=== PATIENT | male | born 1990 | race Caucasian/White ===

== ENCOUNTER 2017-04-12 13:05 | Emergency (ER) | payer MEDICAID ==
[2017-04-12 13:21] VITALS: BP 122/70
== END 2017-04-12 15:01 | disposition left against medical advice (07) ==
LOC: ED 13:05
DX: Z53.21 Procedure and treatment not carried out due to patient leaving prior to being seen by health care provider (principal); M79.89 Other specified soft tissue disorders

== ENCOUNTER 2018-04-25 19:54 | Emergency (ER) | payer MEDICAID ==
[2018-04-25 19:59] VITALS: BP 132/95
[2018-04-25] MEDS ORDERED: HYDROcod/ACETAM 5/325 MG TABLET PO STA (20:13)
--- NOTE | 2018-04-25 20:14 | ED Physician Documentation ---
PD HPI LOWER EXT INJURY - Stated complaint Stated Complaint: FOOT/ANKLE INJURY - Chief complaint Chief Complaint: Ext Problem - History obtained from History obtained from: Patient - History of Present Illness PD HPI LOW EXT INJURY LOCATION: Right, Foot (Skateboarding today and fell trying to do a track and injured the medial side of his right foot with pain radiating upward when he tries to walk. He is unable to walk or bear weight. No other injuries.) Review of Systems Constitutional: reports: Reviewed and negative Throat: reports: Reviewed and negative Cardiac: reports: Reviewed and negative PD PAST MEDICAL HISTORY - Past Medical History Past Medical History: No Cardiovascular: None Respiratory: None Endocrine/Autoimmune: None Psych: Other - Past Surgical History Past Surgical History: Yes - Present Medications Home Medications: Ambulatory Orders Medication Instructions Recorded Confirmed No Known Home Medications [No 04/25/18 04/25/18 Known Home Medications] - Allergies Allergies/Adverse Reactions: Allergies Allergy/AdvReac Type Severity Reaction Status Date / Time bupropion HCl * Allergy Hives Verified 04/12/17 13:21 [From Wellbutrin] coconut Allergy Anaphylaxis Verified 04/25/18 19:59 pineapple Allergy Anaphylaxis Verified 04/25/18 19:59 - Social History Does the pt smoke?: Yes Smoking Status: Current every day smoker Does the pt drink ETOH?: Yes ETOH Use: Beer Does the pt have substance abuse?: Yes Substance Use and Type: Marijuana - Immunizations Immunizations are current?: Yes - POLST Patient has POLST: No PD ED PE NORMAL - Vitals Vital signs reviewed: Yes - General General: Alert and oriented X 3, No acute distress - Extremities Extremities: Other (Mild tenderness of the medial part of the mid right foot without ankle or proximal fibular tenderness.) - Neuro Neuro: Alert and oriented X 3, Normal speech - Psych Psych: Normal mood, Normal affect Results - Vitals Vitals: Vital Signs - 24 hr 04/25/18 19:57 Temperature 36.3 C L Heart Rate 94 Respiratory 16 Rate Blood Pressure 132/95 H O2 Saturation 100 Oxygen O2 Source Room air - Rads (name of study) R foot 3v Radiology: EMP read contemporaneously (NAD) Departure - Departure Disposition: 01 Home, Self Care Clinical Impression: Right foot sprain Qualifiers: Encounter type: initial encounter Qualified Code(s): S93.601A - Unspecified sprain of right foot, initial encounter Condition: Good Record reviewed to determine appropriate education?: Yes Instructions: ED Sprain Foot Comments: Recheck with your doctor in 1 week if not better. Return if worse. Your blood pressure was elevated today on check into the emergency department. This does not mean that you have hypertension, it is a common phenomenon to come to the emergency department and have elevated blood pressure. I recommend that you see your primary care physician within the week to have it rechecked when you are feeling better. Discharge Date/Time: 04/25/18 21:12
--- NOTE | 2018-04-25 20:48 | XRAY Preliminary Report ---
Exam: XR FOOT 3 VIEW RT IMPRESSION: Normal foot radiography. [facility] SITE ID: [id number]
[2018-04-25] MEDS ORDERED: HYDROcod/ACET 5/325 Prepack 4 PO STA (20:56)
--- NOTE | 2018-04-25 21:05 | XRAY Report ---
EXAM: RIGHT FOOT RADIOGRAPHY EXAM DATE: 04/25/2018 08:29 PM. CLINICAL HISTORY: Medial foot pain in the area of the metatarsals after a skateboarding injury. COMPARISON: None. TECHNIQUE: 3 views. FINDINGS: Bones: Normal. No fractures or bone lesions. Joints: Normal. No subluxations. Soft Tissues: Normal. No soft tissue swelling. IMPRESSION: Normal foot radiography. [facility] Referring Provider Line: [phone] SITE ID: [id number]
== END 2018-04-25 21:12 | disposition home or self-care (01) ==
LOC: ED 19:54
DX: S93.601A Unspecified sprain of right foot, initial encounter (principal); V00.131A Fall from skateboard, initial encounter; Y93.51 Activity, roller skating (inline) and skateboarding; R03.0 Elevated blood-pressure reading, without diagnosis of hypertension; F17.200 Nicotine dependence, unspecified, uncomplicated
CPT/HCPCS: 73630; 99282; 99283; A9270

== ENCOUNTER 2018-10-06 14:13 | Emergency (ER) | payer MEDICAID ==
[2018-10-06] MEDS ORDERED: AMOX/CLAV 875 MG/125 MG TABLET PO STA (15:32)
[2018-10-06] MEDS ORDERED: ONDANSETRON ODT 4 MG TABLET TL STA (15:32)
--- NOTE | 2018-10-06 15:42 | ED Physician Documentation ---
History of Present Illness - Stated complaint Stated Complaint: RT TOP TOOTH PX - Chief complaint Chief Complaint: Abd Pain - Additonal information Additional information: hx from pt 27 male right upper dental decay - tooth been crumbling to a stub over a month then abscessed drained spont which made him nauseated Review of Systems Constitutional: denies: Fever Throat: reports: Dental pain / toothache GI: reports: Nausea, Other (painful BM no blood or diarrhea) PD PAST MEDICAL HISTORY - Past Medical History Past Medical History: No Cardiovascular: None Respiratory: None Endocrine/Autoimmune: None Psych: Other - Past Surgical History Past Surgical History: Yes - Present Medications Home Medications: Ambulatory Orders Medication Instructions Recorded Confirmed Amoxicillin 500 mg PO Q8HR #30 capsule 10/06/18 Ondansetron Odt [Zofran] 4 mg TL Q6H PRN #10 tablet 10/06/18 - Allergies Allergies/Adverse Reactions: Allergies Allergy/AdvReac Type Severity Reaction Status Date / Time bupropion HCl * Allergy Hives Verified 04/12/17 13:21 [From Wellbutrin] coconut Allergy Anaphylaxis Verified 04/25/18 19:59 pineapple Allergy Anaphylaxis Verified 10/06/18 14:23 - Social History Does the pt smoke?: Yes Smoking Status: Current every day smoker Does the pt drink ETOH?: Yes Does the pt have substance abuse?: Yes - Immunizations Immunizations are current?: Yes - POLST Patient has POLST: No PD ED PE NORMAL - Vitals Vital signs reviewed: Yes - HEENT HEENT: Other (upper right posterior molar decayed with surrounding inflammation no trismus) - Cardiac Cardiac: RRR - Respiratory Respiratory: No respiratory distress - Abdomen Abdomen: Soft, Non tender Results - Vitals Vitals: Vital Signs - 24 hr 10/06/18 14:19 Temperature 36.8 C Heart Rate 62 Respiratory 20 Rate Blood Pressure 124/82 H O2 Saturation 100 Oxygen O2 Source Room air Departure - Departure Disposition: 01 Home, Self Care Clinical Impression: Dental abscess Instructions: ED Abscess Dental Prescriptions: Amoxicillin 500 mg PO Q8HR #30 capsule Ondansetron Odt [Zofran] 4 mg TL Q6H PRN #10 tablet PRN Reason: Nausea / Vomiting Comments: Please call [facility] to schedule follow up Forms: Activity restrictions
[2018-10-06 15:52] VITALS: BP 122/82
== END 2018-10-06 15:51 | disposition home or self-care (01) ==
LOC: ED 14:13
DX: K04.7 Periapical abscess without sinus (principal); F17.200 Nicotine dependence, unspecified, uncomplicated
CPT/HCPCS: 99283; A9270; Q0162

== ENCOUNTER 2018-10-25 11:17 | Emergency (ER) | payer MEDICAID ==
[2018-10-25 11:33] VITALS: BP 112/68
--- NOTE | 2018-10-25 13:17 | XRAY Report ---
Reason: right third digit injury Procedure Date: 10/25/2018 Accession Number: [id number] / [id number] Procedure: XR - Finger(s) RT CPT Code: FULL RESULT: EXAM: RIGHT THIRD DIGIT RADIOGRAPHY EXAM DATE: 10/25/2018 11:48 AM. CLINICAL HISTORY: Right third digit injury. COMPARISON: None. TECHNIQUE: 3 views. FINDINGS: Bones: No fractures or bone lesions. Joints: Unremarkable. Soft Tissues: Unremarkable. IMPRESSION: 1. No acute osseous abnormality. [facility]
--- NOTE | 2018-10-25 13:21 | ED Physician Documentation ---
PD HPI UPPER EXT INJURY - Stated complaint Stated Complaint: R MIDDLE FINGER INJ - Chief complaint Chief Complaint: Ext Problem - History obtained from History obtained from: Patient - History of Present Illness Location: Right, Finger (middle) Where injury occurred: Other (beach) Timing - onset: Yesterday Worsened by: Moving, Palpating Associated symptoms: Swelling Similar symptoms before: Has not had sx before - Additonal information Additional information: The patient is a 27-year-old right-hand dominant male who presents with injury to his right middle finger. [place] the [place] when he slipped on seaweed and jammed his right middle finger into a concrete wall. He denies any other injuries. Review of Systems Constitutional: denies: Fever Skin: denies: Laceration (s) Musculoskeletal: reports: Extremity pain (Right middle finger.) Neurologic: denies: Focal weakness, Numbness PD PAST MEDICAL HISTORY - Past Medical History Cardiovascular: None Respiratory: None Neuro: None Endocrine/Autoimmune: None GI: None : None HEENT: None Psych: None Musculoskeletal: None Derm: None - Past Surgical History Past Surgical History: Yes Ortho: Other - Present Medications Home Medications: Ambulatory Orders Medication Instructions Recorded Confirmed Amoxicillin 500 mg PO Q8HR #30 capsule 10/06/18 Ondansetron Odt [Zofran] 4 mg TL Q6H PRN #10 tablet 10/06/18 - Allergies Allergies/Adverse Reactions: Allergies Allergy/AdvReac Type Severity Reaction Status Date / Time bupropion HCl * Allergy Hives Verified 04/12/17 13:21 [From Wellbutrin] coconut Allergy Anaphylaxis Verified 04/25/18 19:59 pineapple Allergy Anaphylaxis Verified 10/06/18 14:23 - Social History Does the pt smoke?: Yes Smoking Status: Current every day smoker Does the pt drink ETOH?: Yes ETOH Use: Beer Does the pt have substance abuse?: Yes Substance Use and Type: Marijuana - Immunizations Immunizations are current?: Yes - POLST Patient has POLST: No PD ED PE NORMAL - Vitals Vital signs reviewed: Yes (normal) - General General: Alert and oriented X 3, Well developed/nourished - HEENT HEENT: Atraumatic - Respiratory Respiratory: No respiratory distress - Derm Derm: No rash - Extremities Extremities: Other (There is swelling and tenderness to palpation of the right middle finger. He has decreased flexion of the finger secondary to pain. There is no break in the integument. Distal neurovascular is intact.) - Neuro Neuro: Alert and oriented X 3, No motor deficit, No sensory deficit Results - Vitals Vitals: Oxygen O2 Source Room air - Rads (name of study) Right middle finger Radiology: Prelim report reviewed, EMP read contemporaneously, See rad report (No acute osseous abnormality.) PD MEDICAL DECISION MAKING - ED course Complexity details: reviewed results, re-evaluated patient, considered differential, d/w patient, d/w family ED course: The patient's presentation is significant for contusion to his right middle finger. There is no fracture or dislocation seen on x-ray of the finger. I discussed with him and his female direct care provider the expected course of injury, symptomatic treatment and outpatient follow-up, as well as potentially worrisome signs or symptoms that should prompt reevaluation in the emergency department. Departure - Departure Disposition: 01 Home, Self Care Clinical Impression: Contusion of right middle finger Qualifiers: Encounter type: initial encounter Damage to nail status: without damage Qualified Code(s): S60.031A - Contusion of right middle finger without damage to nail, initial encounter Condition: Stable Instructions: ED Contusion Finger Comments: You can use ibuprofen, up to 800 mg 3 times daily for its anti-inflammatory effect. Let pain be your guide to activity level. Follow-up with primary physician, or return to the emergency department if getting progressively worse, or if not improving within 2 weeks. Discharge Date/Time: 10/25/18 13:25
== END 2018-10-25 13:25 | disposition home or self-care (01) ==
LOC: ED 11:17
DX: S60.031A Contusion of right middle finger without damage to nail, initial encounter (principal); W01.198A Fall on same level from slipping, tripping and stumbling with subsequent striking against other object, initial encounter; Y92.832 Beach as the place of occurrence of the external cause; F17.200 Nicotine dependence, unspecified, uncomplicated
CPT/HCPCS: 73140; 99282

== ENCOUNTER 2019-03-27 08:55 | Emergency (ER) | payer MEDICAID ==
[2019-03-27 09:07] VITALS: BP 126/88
--- NOTE | 2019-03-27 09:15 | ED Physician Documentation ---
PD HPI HEENT - Stated complaint Stated Complaint: SINUS PRESSURE/FACIAL SWELLING - Chief complaint Chief Complaint: Heent - History obtained from History obtained from: Patient - History of Present Illness Timing - onset: How many weeks ago (1) Timing - duration: Weeks (1) Timing - details: Gradual onset, Still present Location: Sinuses Improves: Medication Associated symptoms: Congestion, Rhinorrhea, Facial swelling, Headache, Cough Similar symptoms before: Has not had sx before Recently seen: Not recently seen - Additional information Additional information: Previously well 28-year-old male has developed cough congestion and left maxillary sinus swelling. He awoke about 1 week ago with swelling to the left maxillary area and he has cough and congestion as well. He does not have fever he does have some headache on the left side of his head. Denies any muffled hearing or ear pain. He does have some seasonal allergic symptoms as well. Review of Systems Constitutional: denies: Fever Eyes: denies: Decreased vision Ears: denies: Ear pain Nose: reports: Rhinorrhea / runny nose, Congestion, Sinus pressure / pain Throat: denies: Sore throat Cardiac: denies: Chest pain / pressure, Palpitations Respiratory: reports: Cough. denies: Dyspnea GI: denies: Vomiting PD PAST MEDICAL HISTORY - Past Medical History Cardiovascular: None Respiratory: None Neuro: None Endocrine/Autoimmune: None GI: None : None HEENT: None Psych: None Musculoskeletal: None Derm: None - Past Surgical History Past Surgical History: Yes Ortho: Other - Present Medications Home Medications: Ambulatory Orders Medication Instructions Recorded Confirmed Amox/Clav 875/125 [Augmentin] 1 each PO Q12H #20 tablet 03/27/19 - Allergies Allergies/Adverse Reactions: Allergies Allergy/AdvReac Type Severity Reaction Status Date / Time bupropion HCl * Allergy Hives Verified 03/27/19 09:07 [From Wellbutrin] coconut Allergy Anaphylaxis Verified 03/27/19 09:07 pineapple Allergy Anaphylaxis Verified 03/27/19 09:07 - Social History Does the pt smoke?: Yes Smoking Status: Current every day smoker Does the pt drink ETOH?: Yes Does the pt have substance abuse?: Yes - Immunizations Immunizations are current?: Yes - POLST Patient has POLST: No PD ED PE NORMAL - Vitals Vital signs reviewed: Yes (hypertensive diastolic) - General General: Alert and oriented X 3, No acute distress, Well developed/nourished, Other (28 y/o male with left facial 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 ) - HEENT HEENT: Atraumatic, PERRL, EOMI, Pharynx benign, Other (minimal inflamation to the right TM more to the left with distortion of the landmarks. There is swelling and point tenderness over the left maxillary sinus. ) - Neck Neck: Supple, no meningeal sign, No bony TTP - Cardiac Cardiac: RRR, No murmur - Respiratory Respiratory: No respiratory distress, Clear bilaterally - Abdomen Abdomen: Soft, Non tender - Back Back: No CVA TTP, No spinal TTP - Derm Derm: Normal color, Warm and dry, No rash - Extremities Extremities: No deformity, No edema - Neuro Neuro: Alert and oriented X 3, outside deliverer 2-12 intact, No motor deficit, No sensory deficit, Normal speech Eye Opening: Spontaneous Motor: Obeys Commands Verbal: Oriented GCS Score: 15 Results - Vitals Vitals: Vital Signs - 24 hr 03/27/19 09:04 Temperature 36.2 C L Heart Rate 64 Respiratory 15 Rate Blood Pressure 126/88 H O2 Saturation 99 Oxygen O2 Source Room air PD MEDICAL DECISION MAKING - ED course Complexity details: reviewed results, re-evaluated patient, considered differential, d/w patient, d/w family ED course: 28 y/o male with left maxillary sinusitis is given PO decadron and we will put him on some augmentin. Departure - Departure Disposition: 01 Home, Self Care Clinical Impression: Sinusitis Qualifiers: Sinusitis location: maxillary Chronicity: acute Recurrence: non-recurrent Qualified Code(s): J01.00 - Acute maxillary sinusitis, unspecified Otitis media Qualifiers: Otitis media type: suppurative Chronicity: acute Laterality: bilateral Recurrence: not specified as recurrent Spontaneous tympanic membrane rupture: without spontaneous rupture Qualified Code(s): H66.003 - Acute suppurative otitis media without spontaneous rupture of ear drum, bilateral Condition: Stable Instructions: ED Sinusitis Abx Tx, ED Otitis Media Acute Adult Follow-Up: [facility] [Provider Group] Prescriptions: Amox/Clav 875/125 [Augmentin] 1 each PO Q12H #20 tablet
[2019-03-27] MEDS ORDERED: CHERRY SYRUP 10 ML UDC PO ONE (09:23)
[2019-03-27] MEDS ORDERED: DEXAMETHASONE 10 MG/ML VIAL PO STA (09:23)
== END 2019-03-27 09:38 | disposition home or self-care (01) ==
LOC: ED 08:55
DX: J01.00 Acute maxillary sinusitis, unspecified (principal); H66.003 Acute suppurative otitis media without spontaneous rupture of ear drum, bilateral; F17.200 Nicotine dependence, unspecified, uncomplicated
CPT/HCPCS: 99283; A9270

== ENCOUNTER 2019-05-01 10:00 | Emergency (ER) | payer MEDICAID ==
[2019-05-01 10:18] VITALS: BP 124/79
--- NOTE | 2019-05-01 11:14 | ED Physician Documentation ---
PD HPI HEENT - Stated complaint Stated Complaint: MOUTH PAIN - Chief complaint Chief Complaint: Heent - History obtained from History obtained from: Patient - History of Present Illness Location: Tooth, Mouth - Additional information Additional information: The patient is a 28-year-old male who presents with left facial swelling. He has noticed a "lump" along the upper alveolar ridge. It began draining pus this morning. He denies fever, headache, or earache. Review of his medical record reveals that he was seen here 1 ago with a dental abscess/sinus infection that was treated with Augmentin. Review of Systems Constitutional: denies: Fever Eyes: denies: Irritation Ears: denies: Ear pain Nose: denies: Congestion Throat: reports: Dental pain / toothache. denies: Sore throat Cardiac: denies: Chest pain / pressure Respiratory: denies: Dyspnea, Cough GI: denies: Abdominal Pain, Nausea, Vomiting Skin: denies: Rash Musculoskeletal: denies: Neck pain Neurologic: denies: Headache PD PAST MEDICAL HISTORY - Past Medical History Past Medical History: No Cardiovascular: None Respiratory: None Neuro: None Endocrine/Autoimmune: None GI: None : None HEENT: None Psych: None Musculoskeletal: None Derm: None - Past Surgical History Past Surgical History: Yes Ortho: Other - Present Medications Home Medications: Ambulatory Orders Medication Instructions Recorded Confirmed Clindamycin HCl [Clindamycin 300MG 300 mg PO Q6H #28 capsule 05/01/19 CAP] - Allergies Allergies/Adverse Reactions: Allergies Allergy/AdvReac Type Severity Reaction Status Date / Time bupropion HCl * Allergy Hives Verified 05/01/19 10:18 [From Wellbutrin] coconut Allergy Anaphylaxis Verified 05/01/19 10:18 pineapple Allergy Anaphylaxis Verified 05/01/19 10:18 - Social History Does the pt smoke?: Yes Smoking Status: Current every day smoker Does the pt drink ETOH?: Yes Does the pt have substance abuse?: Yes - Immunizations Immunizations are current?: Yes - POLST Patient has POLST: No PD ED PE NORMAL - Vitals Vital signs reviewed: Yes (Normal) - General General: Alert and oriented X 3, Well developed/nourished - HEENT HEENT: Atraumatic, EOMI, Ears normal, Pharynx benign, Other (There is slight swelling at the left nasolabial fold. There is an abscess drainage site noted on the left upper alveolar surface. Teeth are intact without evidence of decay.) - Neck Neck: Supple, no meningeal sign, No adenopathy - Cardiac Cardiac: RRR - Respiratory Respiratory: No respiratory distress, Clear bilaterally - Derm Derm: No rash - Neuro Neuro: Alert and oriented X 3, Normal speech Results - Vitals Vitals: Vital Signs - 24 hr 05/01/19 10:07 Temperature 36.4 C L Heart Rate 63 Respiratory 16 Rate Blood Pressure 124/79 O2 Saturation 96 Oxygen O2 Source Room air PD MEDICAL DECISION MAKING - ED course Complexity details: reviewed old records, considered differential, d/w patient, d/w family ED course: The patient's presentation is significant for dental abscess that has spont aneously drained. There is no clinical evidence to suggest sinusitis, peritonsillar abscess, or periorbital cellulitis. He is being discharged with prescription for clindamycin. I discussed with him and his mother the diagnosis, importance of follow-up with a dentist, as well as potentially worrisome signs or symptoms that should prompt reevaluation in the emergency department. Departure - Departure Disposition: 01 Home, Self Care Clinical Impression: Dental abscess Condition: Stable Instructions: ED Abscess Dental Follow-Up: [facility] [Provider Group] Prescriptions: Clindamycin HCl [Clindamycin 300MG CAP] 300 mg PO Q6H #28 capsule Comments: Take clindamycin 4 times daily as prescribed. You can use ibuprofen, up to 800 mg 3 times daily if needed for fever or discomfort. Follow-up with a dentist as soon as possible. Return to the emergency department if increasing facial swelling, or otherwise worsening symptoms. Discharge Date/Time: 05/01/19 11:22
== END 2019-05-01 11:22 | disposition home or self-care (01) ==
LOC: ED 10:00
DX: K04.7 Periapical abscess without sinus (principal); F17.200 Nicotine dependence, unspecified, uncomplicated
CPT/HCPCS: 99283